=== PATIENT | female | born 1960 | race Caucasian/White ===

== ENCOUNTER 2019-06-29 14:21 | Outpatient (CLI) | payer OTHER ==
--- NOTE | 2019-06-29 14:55 | ULT ---
Venous duplex sonogram left lower extremity HISTORY: Left leg pain and edema. FINDINGS: The left common femoral vein and greater saphenous junction were evaluated along with the f emoral, deep femoral, popliteal, and posterior tibial vein. There is good color and spectral Doppler flow, compression, and augmentation. Incidental note of reactive appearing lymph nodes at the left groin. IMPRESSION: No sonographic evidence of DVT within the left lower extremity.
== END 2019-06-29 14:22 | disposition home or self-care (01) ==
LOC: ULT 14:21
PROVIDERS: ATTEND Nurse Practitioner Family
DX: M79.89 Other specified soft tissue disorders (principal); M79.605 Pain in left leg

== ENCOUNTER 2019-12-06 15:35 | Outpatient (CLI) | payer MEDICAID, OTHER ==
--- NOTE | 2019-12-06 16:45 | RAD ---
EXAM: LEFT HIP TWO VIEWS: 12/06/19 HISTORY: Left hip pain. The head portion of the hip nail has completely from the femoral head and is extending 3-4 cm cranial in position relative to the femoral head. There is marked varus deformity. There is bony d emineralization. IMPRESSION: Complete separation of the femoral head portion of the left hip nail which now extends 3 to 4 cm cran ial in position relative to the femoral head with considerable varus deformity and resultant foreshor tening. Code T
== END 2019-12-06 15:36 | disposition home or self-care (01) ==
LOC: SCSRAD 15:35
PROVIDERS: ATTEND Psychiatry & Neurology Neurology
DX: M25.552 Pain in left hip (principal); T84.125A Displacement of internal fixation device of left femur, initial encounter; M21.152 Varus deformity, not elsewhere classified, left hip

== ENCOUNTER 2020-03-11 13:47 | Outpatient (CLI) | payer OTHER ==
--- NOTE | 2020-03-11 14:43 | CT ---
Exam: Head CT without contrast HISTORY: Left leg spasm COMPARISON: none FINDINGS: Hemorrhage: No intraparenchymal hemorrhage or extra-axial hematoma. Brain parenchyma: Cortical chavez-white matter differentiation is preserved. No mass effect or midline shift. Basilar cisterns are patent. Ventricular system: Ventricles and sulci are patent and symmetric. Calvarium: Intact. Sinuses and mastoid air cells: Adequate aeration. IMPRESSION: No acute intracranial process. Further evaluation with brain MRI, if clinically warranted
== END 2020-03-11 13:48 | disposition home or self-care (01) ==
LOC: BICCT 13:47
PROVIDERS: ATTEND Psychiatry & Neurology Neurology
DX: M25.559 Pain in unspecified hip (principal); R25.2 Cramp and spasm
CPT/HCPCS: 70450

== ENCOUNTER 2020-03-26 12:02 | Outpatient (CLI) | payer OTHER ==
--- NOTE | 2020-03-26 14:58 | MRI ---
MRI Cervical spine without contrast: HISTORY: Spastic. Patient complains of bilateral rigidity in the lower extremities. Right foot inversion. COMPARISON: None FINDINGS: The craniocervical junction is unremarkable. No significant cord signal abnormality. Paravertebral soft tissues have a normal appearance and normal signal intensity. C1-2:No significant stenosis. C2-3: Minimal disc osteophyte complex present. Facet hypertrophic changes are present on the right. T here is mild right-sided neural foraminal narrowing. Left neural foramen is patent. No significant central canal narrowing is present C3-4: Loss of intervertebral disc height with endplate degenerative changes. Broad-based disc osteoph yte complex and right-sided facet hypertrophic changes are seen. There is narrowing of the central spinal canal with slight flattening of the anterior aspect of the spinal cord. Moderate to severe ilan ateral neural foraminal narrowing is present. C4-5: Loss of intervertebral disc height with prominent endplate degenerative changes. Broad-based di sc osteophyte complex is present. There is narrowing of the central spinal canal with flattening of the anterior aspect of the spinal cord. Moderate right and mild left-sided neural foraminal narrowing is present. C5-6: There is fusion of the C5 and C6 vertebral bodies with foreshortening in the AP dimensions of t hese vertebral bodies. This is likely developmental in origin. Neural foramina and central spinal canal are patent at this level. C6-7: Mild disc osteophyte complex which narrows the ventral subarachnoid space but does not deform t he spinal cord. There are mild facet hypertrophic changes present. The left neural foramen is patent, but there is severe right-sided neural foraminal narrowing. C7-T1: There is no disc bulge or disc herniation. The central spinal canal and neural foramina are pa tent. IMPRESSION: Multilevel degenerative changes in the cervical spine with narrowing degrees of neural foraminal narr owing. Greatest degree of neural foraminal narrowing is seen on the right at the C6-7 level where there is severe right-sided neural foraminal narrowing.
--- NOTE | 2020-03-26 15:25 | MRI ---
MRI thoracic spine noncontrast: 03/26/2020 HISTORY: 59-year-old female. The only clinical information provided is "R 25.2, spastic" TECHNIQUE: Sagittal T1 WI, T2 WI, and STIR. Axial LARRY T2. At this point, the patient refused to continue with the study, because of severe abdominal pain. FINDINGS: The T2-weighted axial images are significantly degraded by patient motion. There is no other axial sequence. There is broad shallow depression of superior endplate of T5 resulting in mild, approximately 20-35% loss of height. There is diffuse T1 hypointense and STIR hyperintense intense throughout the entire T5 vertebral body, especially superiorly. This extends to involve the left T5 pedicle. There is no roberto ny retropulsion. There is a depression of the superior endplate of T11 centrally and posteriorly, with minimal bony re tropulsion. Little or no marrow edema associated with this. There is a similar finding of the superior endplate of T12, with a deeper indentation and minimal adj acent bone marrow edema. Conus medullaris terminates at approximately T12-L1. No central spinal canal stenosis or cord impinge ment at any level. Mild lateral curvature. No severe neural foraminal stenosis identified at any level. IMPRESSION: 1.) Mild compression fracture with diffusely abnormal bone marrow signal involving entire T5 vertebra l body and left T5 pedicle. Uncertain whether this represents an acute or subacute osteoporotic compression fracture or pathologic fracture. The former is slightly favored. 2) mild nonacute compression fractures of superior endplates of T11 and T12 (and also of L1 as seen o n web press roll tender images). 3) no central spinal canal stenosis, and no cord impingement at any level.
== END 2020-03-26 12:03 | disposition home or self-care (01) ==
LOC: MRI 12:02
PROVIDERS: ATTEND Nurse Practitioner Acute Care
DX: R25.2 Cramp and spasm (principal); M47.812 Spondylosis without myelopathy or radiculopathy, cervical region; M48.02 Spinal stenosis, cervical region; M48.54XA Collapsed vertebra, not elsewhere classified, thoracic region, initial encounter for fracture
CPT/HCPCS: 72141; 72146; 72156; 72157